=== PATIENT | female | born 2000 | race Asian ===

== ENCOUNTER 2021-06-24 22:15 | Emergency (ER) | payer OTHER ==
--- NOTE | 2021-06-24 22:53 | EDM.PDOC ---
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 Patient states she is with her first . LMP was in April some time she states. Patient states she was into the clinic and established with her primary care to confirm . Patient states she was to have an ultrasound this week Saturday or Saturday. Patient states she began slight spotting earlier in the week. At this morning began with abdominal cramping, and heavier bleeding. Patient states episodes of clots. Denies any health problems, denies any medications on a daily basis. Patient rating pain 8/10 at this time. Onset: Gradual - Related Data Allergies Allergy/AdvReac Type Severity Reaction Status Date / Time No Known Allergies Allergy Verified 06/24/21 22:27 Home Meds: Home Meds . [No Known Home Meds] 06/24/21 [History] Past Medical History - Past Health History Medical/Surgical History: Denies Medical/Surgical History Social & Family History - Family History Family Medical History: No Pertinent Family History - Tobacco Use Tobacco Use Status *Q: Never Tobacco User Second Hand Smoke Exposure: No - Caffeine Use Caffeine Use: Reports: None - Recreational Drug Use Recreational Drug Use: Yes Recreational Drug Type: Reports: Marijuana/Hashish ED ROS GENERAL - Review of Systems Review Of Systems: Comprehensive ROS is negative, except as noted in HPI. ED EXAM - Physical Exam Exam: See Below Exam Limited By: No Limitations General Appearance: Alert, WD/WN, No Apparent Distress Eye Exam: Bilateral Eye: EOMI, Normal Inspection Ears: Normal External Exam, Hearing Grossly Normal Nose: Normal Inspection Throat/Mouth: Normal Inspection, Normal Voice, No Airway Compromise Head: Atraumatic, Normocephalic Neck: Normal Inspection, Supple, Non-Tender, Full Range of Motion Respiratory/Chest: No Respiratory Distress, Lungs Clear, Normal Breath Sounds, No Accessory Muscle Use, Chest Non-Tender Cardiovascular: Normal Peripheral Pulses, Regular Rate, Rhythm, No Edema, No Gallop, No JVD, No Murmur, No Rub GI/Abdominal Exam: Normal Bowel Sounds, Soft, Non-Tender, No Organomegaly, No Distention, No Abnormal Bruit, No Mass, Pelvis Stable Rectal Exam: Deferred (Female) Exam: Adnexal Tenderness, Cervical Dilatation, Cervical Discharge, Products of Conception, Tissue Present in Cervix/Vagina, Vaginal Bleeding Back Exam: Normal Inspection, Full Range of Motion Extremities: Normal Inspection, Normal Range of Motion, Non-Tender, Normal Capillary Refill, No Pedal Edema Neurological: Alert, Oriented, CN II-XII Intact, Normal Cognition, Normal Gait, Normal Reflexes, No Motor/Sensory Deficits Psychiatric: Normal Affect, Normal Mood Skin Exam: Warm, Dry, Intact, Normal Color, No Rash Lymphatic: No Adenopathy Course - Vital Signs Last Recorded V/S: Last Vital Signs Temp 98 F 06/24/21 22:28 Pulse 77 06/24/21 22:28 Resp 16 06/24/21 22:28 BP 131/67 06/24/21 22:28 Pulse Ox 99 06/24/21 22:28 - Orders/Labs/Meds Orders: Active Orders 24 hr Category Date Time Status UA RFX JAILENE AND CULT IF INDIC [URIN] Stat Lab 06/25/21 Ordered Labs: Laboratory Tests 06/24/21 06/24/21 06/24/21 Range/Units 22:30 22:30 22:30 WBC 7.5 (5.0-10.0) 10^3/uL RBC 3.94 L (4.2-5.4) 10^6/uL Hgb 11.2 L (12.0-16.0) g/dL Hct 32.6 L (37.0-47.0) % MCV 82.7 (80-100) fL MCH 28.4 (27.0-34.0) pg MCHC 34.4 (33.0-35.0) g/dL Plt Count 307 (150-450) 10^3/uL Neut % (Auto) 50.2 (42.2-75.2) % Lymph % (Auto) 38.7 (20.5-50.1) % Vermilion % (Auto) 9.7 H (2-8) % Eos % (Auto) 1.1 (1.0-3.0) % Baso % (Auto) 0.3 (0.0-1.0) % Sodium 140 (136-145) mmol/L Potassium 4.1 (3.5-5.1) mmol/L Chloride 103 (98-107) mmol/L Carbon Dioxide 24 (21-32) mmol/L Anion Gap 17.1 H (7-13) mEq/L BUN 9 (7-18) mg/dL Creatinine 0.75 (0.55-1.02) mg/dL Est Cr Clr Drug Dosing 104.18 mL/min Estimated GFR (MDRD) > 60 BUN/Creatinine Ratio 12.0 (No establ ref range) Glucose 75 (70-99) mg/dL Calcium 9.2 (8.5-10.1) mg/dL Total Bilirubin 0.3 (0.2-1.0) mg/dL AST 13 L (15-37) U/L ALT 16 (14-59) U/L Alkaline Phosphatase 100 (46-116) U/L Total Protein 7.7 (6.4-8.2) g/dL Albumin 4.0 (3.4-5.0) g/dL Globulin 3.7 Albumin/Globulin Ratio 1.1 HCG, Qual HCG, Quant 6331 H (0-6) mIU/mL 06/24/ Range/Units 22:30 WBC (5.0-10.0) 10^3/uL RBC (4.2-5.4) 10^6/uL Hgb (12.0-16.0) g/dL Hct (37.0-47.0) % MCV (80-100) fL MCH (27.0-34.0) pg MCHC (33.0-35.0) g/dL Plt Count (150-450) 10^3/uL Neut % (Auto) (42.2-75.2) % Lymph % (Auto) (20.5-50.1) % Vermilion % (Auto) (2-8) % Eos % (Auto) (1.0-3.0) % Baso % (Auto) (0.0-1.0) % Sodium (136-145) mmol/L Potassium (3.5-5.1) mmol/L Chloride (98-107) mmol/L Carbon Dioxide (21-32) mmol/L Anion Gap (7-13) mEq/L BUN (7-18) mg/dL Creatinine (0.55-1.02) mg/dL Est Cr Clr Drug Dosing mL/min Estimated GFR (MDRD) BUN/Creatinine Ratio (No establ ref range) Glucose (70-99) mg/dL Calcium (8.5-10.1) mg/dL Total Bilirubin (0.2-1.0) mg/dL AST (15-37) U/L ALT (14-59) U/L Alkaline Phosphatase (46-116) U/L Total Protein (6.4-8.2) g/dL Albumin (3.4-5.0) g/dL Globulin Albumin/Globulin Ratio HCG, Qual Positive HCG, Quant (0-6) mIU/mL Meds: Medications Discontinued Medications Generic Name Dose Route Start Last Admin Trade Name Freq PRN Reason Stop Dose Admin Acetaminophen 650 mg 06/24/21 23:30 06/25/21 00:27 Acetaminophen 325 Mg Tab PO 06/24/21 23:31 650 mg NOW ONE Administration - Radiology Interpretation Free Text/Narrative:: Ultrasound: [facility] Final Radiology Report Call: [phone] assistance Online chat: [email or web address] Name: PRINCESS GEOVANY Age: 20Years F Date: 06/24/2021 SSN: -- : 2000 Study: US OB LTD 1 OR MORE FETUS Requesting Physician: Nat Ceballos Images: 17 Addl Studies: Provided Clinical History: vaginal bleeding, LMP Sept Contrast: Without Contrast Medium: Contrast Amount: Contrast Method: Page 1 of 2 PROCEDURE INFORMATION: Exam: US , Limited Exam date and time: 06/24/2021 11:52 PM Age: 20 years old Clinical indication: Lmp or gestational age (in weeks): No; Antepartum complications; Bleeding; complicated by abdominal or pelvic pain; Lower; First trimester (<14 weeks 0 days); Gestational age or lmp: N/a; ; Additional info: Vaginal bleeding, lmp sept TECHNIQUE: Imaging protocol: Real-time ultrasound of the maternal uterus with image documentation. Exam focused on the clinical indication. COMPARISON: No relevant prior studies available. FINDINGS: Gestation: No intrauterine gestational sac. MATERNAL: Uterus: The endometrium is thickened and heterogeneous in echotexture. Doppler imaging of the endometrium is not performed. Right adnexa: The right ovary measures 3.6 x 1.8 x 1.8 cm. Physiologic follicles. No mass. Doppler imaging of the right ovary is not performed. Left adnexa: The left ovary measures 4.8 x 2.6 x 2.3 cm. Physiologic follicles. No mass. Doppler imaging of the left ovary is not performed. Intraperitoneal space: Nonspecific trace free fluid in the posterior cul-de-sac. IMPRESSION: No intrauterine gestational sac. No evidence of ectopic . Thickened, heterogeneous endometrium may be seen with retained products of conception. Doppler imaging of the endometrium is not performed which somewhat limits assessment. PRINCESS GEOVANY | Final Radiology Report CONFIDENTIALITY STATEMENT This report is intended only for use by the referring physician, and only in accordance with law. If you received this in error, call [phone]. Page 2 of 2 Thank you for allowing us to participate in the care of your patient. Dictated and Authenticated by: Eliu Fuchs MD 06/25/2021 12:39 AM Central Time ([place] & [place]) See rad report Departure - Departure Time of Disposition: 00:48 Disposition: Home, Self-Care 01 Condition: Fair Clinical Impression: Incomplete - Discharge Information *PRESCRIPTION DRUG MONITORING PROGRAM REVIEWED*: No *COPY OF PRESCRIPTION DRUG MONITORING REPORT IN PATIENT ASMITA: No Instructions: Miscarriage, [id number] Forms: ED Department Discharge Additional Instructions: Follow up in the clinic with your primary care provider Return to the ER if you are soaking a pad every hour, or if you develop fever or chills. May use Tylenol and/or Ibuprofen as directed for pain/fever Sepsis Event Note (ED) - Evaluation Sepsis Screening Result: No Definite Risk - Focused Exam Vital Signs: Vital Signs Temp Pulse Resp BP Pulse Ox 06/24/21 22:28 98 F 77 16 131/67 99 - My Orders Last 24 Hours: My Active Orders 06/25/21 UA RFX JAILENE AND CULT IF INDIC [URIN] Stat - Assessment/Plan Last 24 Hours: My Active Orders 06/25/21 UA RFX JAILENE AND CULT IF INDIC [URIN] Stat"
[2021-06-24 23:22] LABS: ANION GAP 17.1 mEq/L (7-13); CHLORIDE,CL 103 mmol/L (98-107); SODIUM,NA 140 mmol/L (136-145)
[2021-06-24] MEDS ORDERED: Acetaminophen 325 MG Tab PO ONE (23:30)
--- NOTE | 2021-06-25 00:40 | US ---
PROCEDURE INFORMATION: Exam: US , Limited Exam date and time: 06/24/2021 11:52 PM Age: 20 years old Clinical indication: Lmp or gestational age (in weeks): No; Antepartum complications; Bleeding; complicated by abdominal or pelvic pain; Lower; First trimester (<14 weeks 0 days); Gestational age or lmp: N/a; ; Additional info: Vaginal bleeding, lmp sept TECHNIQUE: Imaging protocol: Real-time ultrasound of the maternal uterus with image documentation. Exam focused on the clinical indication. COMPARISON: No relevant prior studies available. FINDINGS: Gestation: No intrauterine gestational sac. MATERNAL: Uterus: The endometrium is thickened and heterogeneous in echotexture. Doppler imaging of the endometrium is not performed. Right adnexa: The right ovary measures 3.6 x 1.8 x 1.8 cm. Physiologic follicles. No mass. Doppler imaging of the right ovary is not performed. Left adnexa: The left ovary measures 4.8 x 2.6 x 2.3 cm. Physiologic follicles. No mass. Doppler imaging of the left ovary is not performed. Intraperitoneal space: Nonspecific trace free fluid in the posterior cul-de-sac. IMPRESSION: No intrauterine gestational sac. No evidence of ectopic . Thickened, heterogeneous endometrium may be seen with retained products of conception. Doppler imaging of the endometrium is not performed which somewhat limits assessment.
== END 2021-06-25 01:11 | disposition home or self-care (01) ==
LOC: DL.ED 22:15
DX: O03.4 Incomplete spontaneous abortion without complication (principal)
CPT/HCPCS: 36415; 76815; 80053; 84702; 84703; 85025; 99284; A9270

== ENCOUNTER 2022-09-26 10:15 | Emergency (ER) | payer BC, MEDICAID, OTHER ==
[2022-09-26] MEDS: Iopamidol 612 MG/ML 100 ML Bottle IVPUSH ONE (11:02)
[2022-09-26 11:28] LABS: ANION GAP 14.9 mEq/L (7-13)
[2022-09-26] MEDS: Sodium Chloride 0.9% 10 ML Syringe FLUSH PRN (11:38)
[2022-09-26] MEDS: Penicillin G Potassium 3 MILLUNITS in Sodium Chloride 0.9% 100 ML IV ONE (11:38)
[2022-09-26] MEDS ORDERED: Clindamycin in 0.9 % Sod Chlor 900 MG in Premix Bag 1 BAG IV ONE ×2 (12:31)
[2022-09-26] MEDS: Dexamethasone 4 MG/ML SDV IVPUSH ONE (12:37)
[2022-09-26] MEDS: Clindamycin in 0.9 % Sod Chlor 900 MG in Premix Bag 1 BAG IV ONE ×2 (12:43)
[2022-09-26] MEDS: Clindamycin in 0.9 % Sod Chlor 300 MG in Premix Bag 1 BAG IV ONE ×2 (13:04)
== END 2022-09-26 13:10 | disposition left against medical advice (07) ==
LOC: DL.ED 10:15
DX: L03.221 Cellulitis of neck (principal); L03.211 Cellulitis of face; K04.7 Periapical abscess without sinus
CPT/HCPCS: 36415; 70491; 80053; 83605; 84703; 85025; 86140; 87040; 99283; 99284; J1100; J2540; J3490; Q9967

== ENCOUNTER 2022-10-03 19:52 | Emergency (ER) | payer BC, MEDICAID ==
[2022-10-03] MEDS ORDERED: methylPREDNISolone Sodium Succinate 125 MG/2 ML SDV IM ONE (20:10)
[2022-10-03] MEDS ORDERED: Acetaminophen/HYDROcodone 325-10 MG Tab PO ONE (20:15)
== END 2022-10-03 20:54 | disposition home or self-care (01) ==
LOC: DL.ED 19:52
DX: K04.7 Periapical abscess without sinus (principal)
CPT/HCPCS: 96372; 99282; 99283; A9270-GY; J2930